=== PATIENT | female | born 1965 | race Caucasian/White ===

== ENCOUNTER 2021-10-24 17:29 | Emergency (ER) | payer BC ==
[~2021-10-24] VITALS: Ht 160 cm; Wt 115.0 kg
[2021-10-24 17:45] VITALS: BP 150/84
[2021-10-24] MEDS ORDERED: HYDROcodone/acetaminophen 10/325mg tab PO ONE (18:35)
--- NOTE | 2021-10-24 18:50 | NUR ---
PO MED GIVEN
[2021-10-24] MEDS ORDERED: ondansetron 4mg rapidly disintigrating tab PO ONE (19:05)
--- NOTE | 2021-10-24 19:06 | NUR ---
PO MED GIVEN
--- NOTE | 2021-10-24 20:04 | NUR ---
CREDIT CONTROL MANAGER IN ROOM.
[2021-10-24] MEDS ORDERED: OXYC-150 PO (20:55)
[2021-10-24] MEDS ORDERED: ONDA4TAB12 PO (20:55)
[2021-10-24] MEDS ORDERED: oxyCODONE/APAP 10/325mg tablet PO ONE (20:55)
== END 2021-10-24 21:29 | disposition home or self-care (01) ==
LOC: ER 17:30
DX: I89.0 Lymphedema, not elsewhere classified (principal); M79.602 Pain in left arm; M54.2 Cervicalgia; M25.512 Pain in left shoulder; J45.909 Unspecified asthma, uncomplicated; Z90.49 Acquired absence of other specified parts of digestive tract; Z79.899 Other long term (current) drug therapy; Z88.5 Allergy status to narcotic agent
CPT/HCPCS: 93971; 99284; A6449

== ENCOUNTER 2023-05-10 09:37 | Inpatient (IN) | payer BC ==
[~2023-05-10] VITALS: Ht 160 cm; Wt 122.7 kg
[~2023-05-10 09:37] MED LIST: ONDA4TAB12 PO; OXYC-150 PO
[2023-05-10] MEDS: normal saline 1000ML IV soln IVB ONE (12:11)
[2023-05-10] MEDS: ondansetron/PF 4mg/2ml inj IV ONE (12:22)
[2023-05-10] MEDS: morphine 4 MG/ML inj SYRINge IV ONE ×3 (12:22→15:40)
[2023-05-10] MEDS: acetaminophen 1,000mg/100ml IV 100 ML IV SCH (12:24)
[2023-05-10 12:48] LABS: BILIRUBIN,URINE NEGATIVE (Neg); CLARITY,URINE CLEAR (Clear); COLOR,URINE YELLOW (Yellow); GLUCOSE, URINE >=1000 mg/dl (Neg); KETONES,URINE NEGATIVE (Neg); LEUKOCYTE ESTERASE ,URINE NEGATIVE (Neg); NITRITES, URINE NEGATIVE (Neg); OCCULT BLOOD,URINE NEGATIVE (Neg); PH,URINE 5.5 (4.8-8.0); PROTEIN,URINE NEGATIVE (Neg); UROBILINOGEN,URINE 0.2 E.U/dL (0.2-1.0)
[2023-05-10 12:50] LABS: UA COLLECTION TYPE CLN CATCH MIDSTREAM
[2023-05-10 12:54] LABS: BACTERIA,URINE NONE SEEN /HPF (Neg); MUCUS STRANDS FEW /LPF (Neg); RBC,URINE 0-2 /HPF (0-2); SQUAMOUS EPITHELIAL CELL,UR FEW /LPF (FEW); WBC,URINE 0-4 /HPF (0-4)
[2023-05-10 12:56] LABS: ALANINE AMINOTRANSFERASE 15 U/L (12-78); ALBUMIN 3.2 G/DL (3.4-5.0); ALBUMIN/GLOBULIN RATIO 0.7 (1.1-1.5); ALKALINE PHOSPHATASE 70 IU/L (46-116); ANION GAP 12 (8-16); ASPARTATE AMINO TRANSFERASE 14 U/L (10-37); BILIRUBIN,TOTAL 0.4 MG/DL (0.1-1.0); BLOOD UREA NITROGEN 18 MG/DL (7-18); BUN/CREATININE RATIO 22.2 (10.0-20.0); CALCIUM 8.1 MG/DL (8.5-10.1); CHLORIDE 101 MMOL/L (99-107); CREATININE 0.81 MG/DL (0.40-0.90); GLUCOSE 278 MG/DL (70-104); POTASSIUM 3.8 MMOL/L (3.5-5.1); SODIUM 137 MMOL/L (135-145); TOTAL CARBON DIOXIDE 23.9 MMOL/L (24-32); TOTAL PROTEIN 7.5 G/DL (6.4-8.2); eCRCL 62 ML/MIN; eGFR 72 ML/MIN
[2023-05-10 12:57] LABS: BILIRUBIN,DIRECT 0.1 MG/DL (0-0.3); C-REACTIVE PROTEIN 7.37 MG/DL (0.0-0.5); MAGNESIUM 1.7 MG/DL (1.5-2.4); URIC ACID 3.6 MG/DL (2.5-6.2)
[2023-05-10] MEDS: ketorolac trometh. 30mg/ml inj. IM ONE (13:09)
[2023-05-10] MEDS: normal saline 1000ml 1,000 ML IV ONE (13:10)
[2023-05-10] MEDS ORDERED: iohexol 300mg/ml 100ml inj. ONE (13:40)
[2023-05-10] MEDS: cefepime 2g/NS 100ml ADVANTAGE 100 ML IV ONE (14:20)
[2023-05-10 14:39] LABS: BASOPHILS % (AUTO) 0.2 % (0-1); EOSINOPHILS % (AUTO) 0 % (0-6); HEMATOCRIT 37.8 % (35.0-45.0); LYMPHOCYTES % (AUTO) 8.8 % (21-51); MEAN CORPUSCULAR HEMOGLOBIN 30.1 PG (27.0-31.0); MEAN CORPUSCULAR HGB CONC 34.3 g/dL (33.0-36.5); MEAN CORPUSCULAR VOLUME 87.7 FL (78-98); MEAN PLATELET VOLUME 8.3 FL (7.4-10.4); MONOCYTES # (AUTO) 0.5 X10'3 (0-0.9); MONOCYTES % (AUTO) 4.4 % (2-12); NEUTROPHILS # (AUTO) 9.6 X10'3 (1.8-7.7); NEUTROPHILS % (AUTO) 86.6 % (42-75); PLATELET COUNT 180 X10'3 (140-440); RED BLOOD COUNT 4.31 X10'6 (4.20-5.60); RED CELL DISTRIBUTION WIDTH 13.5 % (11.5-14.5); WHITE BLOOD COUNT 11.1 X10'3 (4.5-11.0)
[2023-05-10] MEDS: vancomycin/NS 1 GM ADD-VANTAGE 250 ML X 1 DOSE IV ONE (15:34)
[2023-05-10] MEDS ORDERED: HYDROmorphone/PF 0.2 MG/ML SYRINGE IV PRN (16:40)
[2023-05-10] MEDS ORDERED: HYDROmorphone inj. 0.5 MG/0.5 ML DISP.SYRIN IV PRN ×2 (16:40→17:15)
[2023-05-10] MEDS ORDERED: potassium Cl 20 mEq SR tablet PO PRN (16:40)
[2023-05-10] MEDS ORDERED: magnesium 2GM in 50ml NS 50 ML IV PRN (16:40)
[2023-05-10] MEDS ORDERED: magnesium 4gm in 100ml NS 100 ML IV PRN (16:40)
[2023-05-10] MEDS ORDERED: mag hydrox/Alum hydrox/simeth 30ml oral suspension PO PRN (16:40)
[2023-05-10] MEDS ORDERED: acetaminophen 325mg tablet PO PRN ×2 (16:40)
[2023-05-10] MEDS ORDERED: potassium Cl 40MEQ/1/2NS 520ml 520 ML IV PRN (16:40)
[2023-05-10] MEDS ORDERED: HYDROcodone/acetaminophen 5mg/325mg tablet PO PRN (16:40)
[2023-05-10] MEDS: K and/or MAG REPLACEMENT MC SCH (19:45)
[2023-05-10] MEDS: docusate sod 100mg capsule PO SCH (19:57)
[2023-05-10] MEDS: normal saline 1000ml 1,000 ML IV SCH (19:57)
[2023-05-10] MEDS: enoxaparin 40mg/0.4ml syringe SQ SCH (19:58)
[2023-05-10] MEDS: HYDROmorphone 1 mg/ml syringe IV PRN (20:01)
[2023-05-10] MEDS ORDERED: DEXL60CA6 PO (20:10)
[2023-05-10] MEDS ORDERED: SUCR1TAB PO (20:10)
[2023-05-10] MEDS ORDERED: CYAN10007 IM (20:10)
[2023-05-10] MEDS ORDERED: TAMO20TA4 PO (20:10)
[2023-05-10] MEDS ORDERED: PRED20TA PO (20:10)
[2023-05-10] MEDS ORDERED: ESCI-8 PO (20:10)
[2023-05-10] MEDS ORDERED: CELE-127 PO (20:10)
[2023-05-10 22:00] VITALS: BP 169/83; PULSE 78; RESP 22; TEMP 97.5; O2SAT 96
[2023-05-10] MEDS: HYDROcodone/acetaminophen 10/325mg tab PO PRN (22:21)
[2023-05-11] MEDS: cefepime 2g/NS 100ml ADVANTAGE 100 ML IV SCH (00:19)
[2023-05-11] MEDS: vancomycin/NS 1 GM ADD-VANTAGE 250 ML IV SCH ×2 (02:44→11:11)
[2023-05-11 06:00] VITALS: BP 145/76; PULSE 80; RESP 18; TEMP 98.2; O2SAT 94
[2023-05-11 07:22] LABS: BASOPHILS % (AUTO) 0.1 % (0-1); EOSINOPHILS # (AUTO) 0.1 X10'3 (0-0.9); EOSINOPHILS % (AUTO) 0.4 % (0-6); HEMATOCRIT 36.5 % (35.0-45.0); HEMOGLOBIN 12.2 g/dl (12.0-16.0); LYMPHOCYTES # (AUTO) 3.1 X10'3 (1.1-4.8); LYMPHOCYTES % (AUTO) 22.6 % (21-51); MEAN CORPUSCULAR HEMOGLOBIN 29.6 PG (27.0-31.0); MEAN CORPUSCULAR HGB CONC 33.4 g/dL (33.0-36.5); MEAN CORPUSCULAR VOLUME 88.8 FL (78-98); MEAN PLATELET VOLUME 8.5 FL (7.4-10.4); MONOCYTES # (AUTO) 1.4 X10'3 (0-0.9); MONOCYTES % (AUTO) 9.9 % (2-12); NEUTROPHILS # (AUTO) 9.1 X10'3 (1.8-7.7); PLATELET COUNT 196 X10'3 (140-440); RED BLOOD COUNT 4.11 X10'6 (4.20-5.60); RED CELL DISTRIBUTION WIDTH 13.3 % (11.5-14.5); WHITE BLOOD COUNT 13.6 X10'3 (4.5-11.0)
[2023-05-11 07:33] LABS: ALANINE AMINOTRANSFERASE 16 U/L (12-78); ALBUMIN 2.8 G/DL (3.4-5.0); ALBUMIN/GLOBULIN RATIO 0.7 (1.1-1.5); ALKALINE PHOSPHATASE 50 IU/L (46-116); ANION GAP 9 (8-16); ASPARTATE AMINO TRANSFERASE 12 U/L (10-37); BILIRUBIN,TOTAL 0.4 MG/DL (0.1-1.0); BLOOD UREA NITROGEN 13 MG/DL (7-18); BUN/CREATININE RATIO 19.7 (10.0-20.0); CALCIUM 7.8 MG/DL (8.5-10.1); CHLORIDE 104 MMOL/L (99-107); CREATININE 0.66 MG/DL (0.40-0.90); GLUCOSE 139 MG/DL (70-104); MAGNESIUM 1.8 MG/DL (1.5-2.4); POTASSIUM 3.3 MMOL/L (3.5-5.1); SODIUM 139 MMOL/L (135-145); TOTAL PROTEIN 6.8 G/DL (6.4-8.2); eCRCL 76 ML/MIN; eGFR > 90 ML/MIN
[2023-05-11 10:00] VITALS: BP 167/77; PULSE 85; RESP 14; TEMP 97.5; O2SAT 94
[2023-05-11] MEDS ORDERED: HYDROmorphone inj. 0.5 MG/0.5 ML DISP.SYRIN IV PRN (10:15)
[2023-05-11] MEDS: HYDROmorphone 1 mg/ml syringe IV PRN (10:48)
[2023-05-11] MEDS: sucralfate 1 gm tablet PO SCH (13:14)
[2023-05-11] MEDS: oxyCODONE/APAP 10/325mg tablet PO PRN (13:14)
[2023-05-11] MEDS: ondansetron/PF 4mg/2ml inj IV PRN (15:40)
[2023-05-11 18:00] VITALS: BP 177/80; PULSE 84; RESP 18; TEMP 97.7; O2SAT 90
[2023-05-11 19:17] LABS: HEMOGLOBIN A1C 6.9 % (4.5-6.2)
[2023-05-11] MEDS: celeCOXIB 100mg capsule PO SCH (19:33)
[2023-05-11] MEDS: predniSONE 20 mg tablet PO SCH (19:33)
[2023-05-11] MEDS: potassium Cl 20 mEq SR tablet PO PRN (19:52)
[2023-05-11 20:00] VITALS: RESP 18; O2SAT 96
[2023-05-11] MEDS: ESCITALOPRAM 10 mg tablet 10 MG TABLET PO SCH (20:43)
[2023-05-12] MEDS: VANCOMYCIN LEVEL IV ONE (02:47)
[2023-05-12 02:52] LABS: BASOPHILS # (AUTO) 0.1 X10'3 (0-0.2); BASOPHILS % (AUTO) 0.5 % (0-1); EOSINOPHILS % (AUTO) 0.2 % (0-6); HEMATOCRIT 34.7 % (35.0-45.0); HEMOGLOBIN 11.6 g/dl (12.0-16.0); LYMPHOCYTES # (AUTO) 1.4 X10'3 (1.1-4.8); LYMPHOCYTES % (AUTO) 12.3 % (21-51); MEAN CORPUSCULAR HEMOGLOBIN 29.7 PG (27.0-31.0); MEAN CORPUSCULAR HGB CONC 33.4 g/dL (33.0-36.5); MEAN CORPUSCULAR VOLUME 88.8 FL (78-98); MONOCYTES # (AUTO) 0.7 X10'3 (0-0.9); MONOCYTES % (AUTO) 6.3 % (2-12); NEUTROPHILS # (AUTO) 8.9 X10'3 (1.8-7.7); NEUTROPHILS % (AUTO) 80.7 % (42-75); PLATELET COUNT 179 X10'3 (140-440); RED CELL DISTRIBUTION WIDTH 13.2 % (11.5-14.5)
[2023-05-12 03:12] LABS: ALANINE AMINOTRANSFERASE 12 U/L (12-78); ALBUMIN 2.5 G/DL (3.4-5.0); ALBUMIN/GLOBULIN RATIO 0.6 (1.1-1.5); ALKALINE PHOSPHATASE 44 IU/L (46-116); ANION GAP 8 (8-16); BILIRUBIN,TOTAL 0.4 MG/DL (0.1-1.0); BLOOD UREA NITROGEN 8 MG/DL (7-18); BUN/CREATININE RATIO 12.9 (10.0-20.0); CALCIUM 7.9 MG/DL (8.5-10.1); CHLORIDE 105 MMOL/L (99-107); CREATININE 0.62 MG/DL (0.40-0.90); GLUCOSE 190 MG/DL (70-104); MAGNESIUM 1.9 MG/DL (1.5-2.4); POTASSIUM 4.1 MMOL/L (3.5-5.1); SODIUM 139 MMOL/L (135-145); TOTAL CARBON DIOXIDE 26.2 MMOL/L (24-32); TOTAL PROTEIN 6.4 G/DL (6.4-8.2); VANCOMYCIN,TROUGH 10.4 ug/mL (10.0-20.0); eCRCL 81 ML/MIN; eGFR > 90 ML/MIN
[2023-05-12 03:28] LABS: ASPARTATE AMINO TRANSFERASE 14 U/L (10-37)
[2023-05-12 08:00] VITALS: RESP 17; O2SAT 96
[2023-05-12] MEDS: pantoprazole 40mg Tablet.DR PO SCH (08:28)
[2023-05-12] MEDS: tamoxifen 10mg tablet PO SCH (08:28)
[2023-05-12] MEDS: MESSAGE TO PHARMACY PO ONE (11:50)
[2023-05-12] MEDS ORDERED: glucagon, human recombinant 1mg kit SUBCUT PRN (11:50)
[2023-05-12] MEDS ORDERED: dextrose 50%-water 50ml dispensing syringe IV PRN ×2 (11:50)
[2023-05-12] MEDS ORDERED: DEXTROSE 15 GM of carb/4 tabs (each vial/BOTTLE has 4 tablets) PO PRN ×2 (11:50)
[2023-05-12] MEDS ORDERED: insulin Lispro (HumaLOG) vial - multi-dose SQ SCH (11:50)
[2023-05-12] MEDS: hydrOXYzine 25 MG tablet PO PRN (16:05)
[2023-05-12 18:00] VITALS: BP 138/61; PULSE 71; RESP 15; TEMP 98.4; O2SAT 94
[2023-05-12] MEDS: magnesium hydroxide 30ml (MOM) UD suspension PO PRN (19:39)
[2023-05-12] MEDS: insulin glargine (Lantus) pen - multi-dose SQ SCH (21:00)
[2023-05-12] MEDS: VANCOmycin 1250MG/NS 250ml Bag 250 ML IV SCH (21:07)
[2023-05-12 22:00] VITALS: BP 118/61; PULSE 74; RESP 16; TEMP 97.7; O2SAT 98
[2023-05-13 06:00] VITALS: BP 133/57; PULSE 55; RESP 16; TEMP 96.9; O2SAT 95
[2023-05-13 06:59] LABS: BASOPHILS % (AUTO) 0.2 % (0-1); EOSINOPHILS # (AUTO) 0.1 X10'3 (0-0.9); EOSINOPHILS % (AUTO) 0.8 % (0-6); HEMATOCRIT 34.9 % (35.0-45.0); HEMOGLOBIN 11.8 g/dl (12.0-16.0); LYMPHOCYTES # (AUTO) 1.9 X10'3 (1.1-4.8); LYMPHOCYTES % (AUTO) 20.6 % (21-51); MEAN CORPUSCULAR HEMOGLOBIN 29.8 PG (27.0-31.0); MEAN CORPUSCULAR HGB CONC 33.8 g/dL (33.0-36.5); MEAN CORPUSCULAR VOLUME 88.3 FL (78-98); MEAN PLATELET VOLUME 8.2 FL (7.4-10.4); MONOCYTES # (AUTO) 0.7 X10'3 (0-0.9); MONOCYTES % (AUTO) 7.8 % (2-12); NEUTROPHILS # (AUTO) 6.7 X10'3 (1.8-7.7); NEUTROPHILS % (AUTO) 70.6 % (42-75); PLATELET COUNT 196 X10'3 (140-440); RED BLOOD COUNT 3.95 X10'6 (4.20-5.60); RED CELL DISTRIBUTION WIDTH 13.3 % (11.5-14.5); WHITE BLOOD COUNT 9.5 X10'3 (4.5-11.0)
[2023-05-13 07:12] LABS: ALANINE AMINOTRANSFERASE 25 U/L (12-78); ALBUMIN 2.6 G/DL (3.4-5.0); ALBUMIN/GLOBULIN RATIO 0.7 (1.1-1.5); ALKALINE PHOSPHATASE 49 IU/L (46-116); ANION GAP 6 (8-16); ASPARTATE AMINO TRANSFERASE 29 U/L (10-37); BILIRUBIN,TOTAL 0.4 MG/DL (0.1-1.0); BLOOD UREA NITROGEN 10 MG/DL (7-18); BUN/CREATININE RATIO 15.9 (10.0-20.0); CALCIUM 8.2 MG/DL (8.5-10.1); CHLORIDE 107 MMOL/L (99-107); CREATININE 0.63 MG/DL (0.40-0.90); GLUCOSE 171 MG/DL (70-104); POTASSIUM 3.8 MMOL/L (3.5-5.1); SODIUM 141 MMOL/L (135-145); TOTAL CARBON DIOXIDE 27.8 MMOL/L (24-32); TOTAL PROTEIN 6.6 G/DL (6.4-8.2); eCRCL 80 ML/MIN; eGFR > 90 ML/MIN
[2023-05-13 08:00] VITALS: RESP 16; O2SAT 98
[2023-05-13] MEDS: oxyCODONE/APAP 5-325mg tablet PO PRN (08:07)
[2023-05-13 10:00] VITALS: BP 166/83; PULSE 72; RESP 18; TEMP 98; O2SAT 97
[2023-05-13 18:00] VITALS: BP 151/77; PULSE 89; RESP 20; TEMP 97.5; O2SAT 97
[2023-05-13] MEDS: VANCOMYCIN LEVEL IV ONE (18:30)
[2023-05-13 22:00] VITALS: BP 154/70; PULSE 66; RESP 17; TEMP 97.1; O2SAT 95
[2023-05-14] MEDS: TETanus/Pertussis (Acell)/Diphther VAC/PF (Tdap-Adult) 0.5ml syringe IMVAC ONE (00:58)
[2023-05-14 06:00] VITALS: BP 148/69; PULSE 61; RESP 15; TEMP 98.7; O2SAT 96
[2023-05-14 06:55] LABS: BASOPHILS % (AUTO) 0.3 % (0-1); EOSINOPHILS # (AUTO) 0.1 X10'3 (0-0.9); EOSINOPHILS % (AUTO) 0.8 % (0-6); HEMATOCRIT 33.7 % (35.0-45.0); HEMOGLOBIN 11.4 g/dl (12.0-16.0); LYMPHOCYTES # (AUTO) 1.9 X10'3 (1.1-4.8); LYMPHOCYTES % (AUTO) 22.7 % (21-51); MEAN CORPUSCULAR HEMOGLOBIN 29.8 PG (27.0-31.0); MEAN CORPUSCULAR HGB CONC 33.7 g/dL (33.0-36.5); MEAN CORPUSCULAR VOLUME 88.3 FL (78-98); MEAN PLATELET VOLUME 8.1 FL (7.4-10.4); MONOCYTES # (AUTO) 0.6 X10'3 (0-0.9); MONOCYTES % (AUTO) 6.5 % (2-12); NEUTROPHILS # (AUTO) 5.9 X10'3 (1.8-7.7); NEUTROPHILS % (AUTO) 69.7 % (42-75); PLATELET COUNT 223 X10'3 (140-440); RED BLOOD COUNT 3.81 X10'6 (4.20-5.60); RED CELL DISTRIBUTION WIDTH 13.2 % (11.5-14.5); WHITE BLOOD COUNT 8.5 X10'3 (4.5-11.0)
[2023-05-14 07:14] LABS: ALANINE AMINOTRANSFERASE 25 U/L (12-78); ALBUMIN 2.6 G/DL (3.4-5.0); ALBUMIN/GLOBULIN RATIO 0.7 (1.1-1.5); ALKALINE PHOSPHATASE 47 IU/L (46-116); ANION GAP 5 (8-16); ASPARTATE AMINO TRANSFERASE 24 U/L (10-37); BILIRUBIN,TOTAL 0.3 MG/DL (0.1-1.0); BLOOD UREA NITROGEN 11 MG/DL (7-18); BUN/CREATININE RATIO 16.9 (10.0-20.0); CALCIUM 8.2 MG/DL (8.5-10.1); CHLORIDE 105 MMOL/L (99-107); CREATININE 0.65 MG/DL (0.40-0.90); GLUCOSE 184 MG/DL (70-104); MAGNESIUM 1.9 MG/DL (1.5-2.4); POTASSIUM 3.8 MMOL/L (3.5-5.1); SODIUM 140 MMOL/L (135-145); TOTAL CARBON DIOXIDE 29.6 MMOL/L (24-32); TOTAL PROTEIN 6.4 G/DL (6.4-8.2); eCRCL 77 ML/MIN; eGFR > 90 ML/MIN
[2023-05-14 08:00] VITALS: RESP 15; O2SAT 96
[2023-05-14 10:00] VITALS: BP 161/87; PULSE 62; RESP 20; TEMP 98.1; O2SAT 95
[2023-05-14 18:00] VITALS: BP 169/65; PULSE 65; RESP 16; TEMP 98.3; O2SAT 96
[2023-05-14] MEDS: VANCOMYCIN 1,500MG in normal saline IV soln 300 ML IV SCH (19:51)
[2023-05-14 20:00] VITALS: RESP 16; O2SAT 96
[2023-05-14 22:00] VITALS: BP 176/68; PULSE 69; RESP 18; TEMP 97.9; O2SAT 98
[2023-05-14 22:34] LABS: PRO BRAIN NATRIURETIC PEPTIDE 705 PG/ML (0-125)
[2023-05-15 06:00] VITALS: BP 176/68; PULSE 63; RESP 16; TEMP 98.6; O2SAT 98
[2023-05-15 07:42] LABS: BASOPHILS % (AUTO) 0.4 % (0-1); EOSINOPHILS # (AUTO) 0.1 X10'3 (0-0.9); EOSINOPHILS % (AUTO) 1.1 % (0-6); HEMOGLOBIN 12.1 g/dl (12.0-16.0); LYMPHOCYTES # (AUTO) 2.1 X10'3 (1.1-4.8); LYMPHOCYTES % (AUTO) 22.8 % (21-51); MEAN CORPUSCULAR HEMOGLOBIN 30.5 PG (27.0-31.0); MEAN CORPUSCULAR HGB CONC 34.6 g/dL (33.0-36.5); MEAN CORPUSCULAR VOLUME 88.1 FL (78-98); MONOCYTES # (AUTO) 0.7 X10'3 (0-0.9); NEUTROPHILS # (AUTO) 6.4 X10'3 (1.8-7.7); NEUTROPHILS % (AUTO) 68.7 % (42-75); PLATELET COUNT 239 X10'3 (140-440); RED BLOOD COUNT 3.97 X10'6 (4.20-5.60); RED CELL DISTRIBUTION WIDTH 13.5 % (11.5-14.5); WHITE BLOOD COUNT 9.4 X10'3 (4.5-11.0)
[2023-05-15 09:36] LABS: ALBUMIN 2.6 G/DL (3.4-5.0); ANION GAP 6 (8-16); BILIRUBIN,TOTAL 0.3 MG/DL (0.1-1.0); BLOOD UREA NITROGEN 10 MG/DL (7-18); BUN/CREATININE RATIO 15.6 (10.0-20.0); CALCIUM 8.7 MG/DL (8.5-10.1); CHLORIDE 105 MMOL/L (99-107); CREATININE 0.64 MG/DL (0.40-0.90); GLUCOSE 166 MG/DL (70-104); MAGNESIUM 1.8 MG/DL (1.5-2.4); POTASSIUM 3.7 MMOL/L (3.5-5.1); SODIUM 141 MMOL/L (135-145); TOTAL CARBON DIOXIDE 30.2 MMOL/L (24-32); TOTAL PROTEIN 6.6 G/DL (6.4-8.2); eCRCL 78 ML/MIN; eGFR > 90 ML/MIN
[2023-05-15 09:37] LABS: ALANINE AMINOTRANSFERASE 25 U/L (12-78); ALBUMIN/GLOBULIN RATIO 0.7 (1.1-1.5); ALKALINE PHOSPHATASE 47 IU/L (46-116); ASPARTATE AMINO TRANSFERASE 20 U/L (10-37)
[2023-05-15 10:00] VITALS: BP 167/61; PULSE 74; RESP 16; TEMP 98.1; O2SAT 97
[2023-05-15] MEDS: cefazolin 2gm/D5W 100mL 100 ML IV SCH (11:33)
[2023-05-15] MEDS ORDERED: VANCOMYCIN LEVEL IV ONE (18:30)
== END 2023-05-15 15:20 | disposition home health service (06) | DRG 872 ==
LOC: ER 09:37 → ED HOLD 16:46 → EDBEDREQ 21:04 → ORTHO 4S 22:00
PROVIDERS: ADMIT Family Medicine; ATTEND Family Medicine
PROC: BP2 Imaging, Non-Axial Upper Bones, Computerized Tomography (CT Scan) (ICD-10-PCS; 2023-05-10)
PROC: 0R9P3ZX Drainage of Left Wrist Joint, Percutaneous Approach, Diagnostic (ICD-10-PCS; principal; 2023-05-11)
PROC: 5A09357 Assistance with Respiratory Ventilation, Less than 24 Consecutive Hours, Continuous Positive Airway Pressure (ICD-10-PCS; 2023-05-12)
PROC: 5A09357 Assistance with Respiratory Ventilation, Less than 24 Consecutive Hours, Continuous Positive Airway Pressure (ICD-10-PCS; 2023-05-13)
PROC: 5A09357 Assistance with Respiratory Ventilation, Less than 24 Consecutive Hours, Continuous Positive Airway Pressure (ICD-10-PCS; 2023-05-14)
PROC: 05HB33Z Insertion of Infusion Device into Right Basilic Vein, Percutaneous Approach (ICD-10-PCS; 2023-05-15)
DX: A41.01 Sepsis due to Methicillin susceptible Staphylococcus aureus (principal); L03.114 Cellulitis of left upper limb; F32.A Depression, unspecified; F17.200 Nicotine dependence, unspecified, uncomplicated; M06.9 Rheumatoid arthritis, unspecified; K21.9 Gastro-esophageal reflux disease without esophagitis; J45.909 Unspecified asthma, uncomplicated; F10.90 Alcohol use, unspecified, uncomplicated; Z96.653 Presence of artificial knee joint, bilateral; Z90.12 Acquired absence of left breast and nipple; Z92.3 Personal history of irradiation; Z85.3 Personal history of malignant neoplasm of breast; Z88.5 Allergy status to narcotic agent; Z90.49 Acquired absence of other specified parts of digestive tract; Z79.899 Other long term (current) drug therapy; Z80.3 Family history of malignant neoplasm of breast; Z80.1 Family history of malignant neoplasm of trachea, bronchus and lung
CPT/HCPCS: 36415; 73110; 73201; 80048; 80053; 80076; 80202; 81001; 82948; 83036; 83605; 83735; 83880; 84145; 84550; 85025; 85651; 86140; 87040; 87070; 87077; 87186; 90715; 93005; 99285; G0378; J0131; J0690; J0692; J1170; J1650; J1815; J2270; J2405; J3370; J3490; J7030; J7040; J7512; Q0177; Q9967